=== PATIENT | male | born 1970 | race Two or more races ===

== ENCOUNTER → 2017-03-05 | Outpatient (CLI) | payer OTHER ==
--- NOTE | 2017-03-05 08:38 | RAD ---
Indication: Left lower leg pain anteriorly. Time of exam 0832 hours. Alignment at the knee and ankle appears normal. The tibia and fibula appear intact. No fracture is identified. Soft tissues are unremarkable. Impression: No acute abnormality is detected.
== END | disposition home or self-care (01) ==
LOC: DXRADRC 08:25
PROVIDERS: ATTEND Physician Assistant Medical
DX: M79.605 Pain in left leg (principal)
CPT/HCPCS: 73590

== ENCOUNTER → 2022-01-05 | Outpatient (CLI) | payer BC ==
--- NOTE | 2022-01-05 17:47 | RAD ---
XR FOOT_RIGHT 3 VIEWS, XR EXAM OF ANKLE_RIGHT 3VIEWS Clinical Indication: Reason: FOOT AND ANKLE PAIN, NKI / Spl. Instructions: / History: Comparison: None. Ankle Findings: There is no acute fracture or dislocation. The ankle mortise is intact. No soft tissue swelling is s een. The mineralization is normal. Foot findings: There is no acute fracture or dislocation. The bony alignment is normal. There is no soft tissue abnormality. IMPRESSION: No acute bone abnormality. Electronically signed by: Alden Covarrubias MD (01/05/2022 5:45 PM) [id number]
== END ==
LOC: RAD 14:27
PROVIDERS: ATTEND Podiatrist
DX: M25.571 Pain in right ankle and joints of right foot (principal); M79.671 Pain in right foot
CPT/HCPCS: 73610; 73630